=== PATIENT | male | born 1990 | race Caucasian/White ===

== ENCOUNTER 2023-12-06 15:06 | Emergency (ER) | payer OTHER, SELFPAY ==
[2023-12-06 15:11] VITALS: BP 155/102
[2023-12-06 15:43] LABS: % Basophils 0.3 % (0-2); % Eosinophils 1.4 % (0-6); % Immature Granulocytes 0.2 % (0-0.5); % Lymphocytes 40.8 % (20.5-51.1); % Monocytes 15.6 % (1.7-9.3); % Neutrophils 41.7 % (42.2-75.2); Absolute Eosinophils 0.1 10^3/uL (0-0.7); Absolute Lymphocytes 2.4 10^3/uL (1.2-3.4); Absolute Monocytes 0.9 10^3/uL (0.1-0.6); Absolute Neutrophils 2.4 10^3/uL (1.4-6.5); Hematocrit 45.2 % (39.0-52.0); Hemoglobin 16.4 g/dL (13.0-18.0); Mean Corp Hgb Conc. 36.3 g/dL (33.0-37.0); Mean Corpuscular Hgb 32.2 pg (27.0-31.0); Mean Corpuscular Volume 88.8 fL (80.0-94.0); Mean Platelet Volume 9.3 fL (7.4-10.4); Nucleated Red Blood Cells % 0 % (-); Platelet Count 204 10^3/uL (130-400); Red Blood Cell Count 5.09 10^6/uL (4.70-6.10); Red Cell Dist. Width 11.7 % (11.5-14.5); White Blood Cell Count 5.8 10^3/uL (4.8-10.8)
[2023-12-06 15:53] LABS: ALT (SGPT) 107 U/L (0-50); AST (SGOT) 76 U/L (17-59); Albumin 4.8 g/dl (3.5-5.0); Alkaline Phosphatase 87 U/L (38-126); Blood Urea Nitrogen 13 mg/dl (9-20); Carbon Dioxide 26 mmol/L (22-30); Chloride 101 mmol/L (98-107); Glucose 110 mg/dl (70-99); Lipase 71 U/L (23-300); Sodium 134 mmol/L (135-145); Total Bilirubin 0.9 mg/dl (0.2-1.3); Total Protein 7.9 g/dl (6.3-8.2); eGFR > 60.00
--- NOTE | 2023-12-06 18:15 | ED.GENMED ---
History of Present Illness
General
Chief Complaint: Abdominal Symptoms
Source: patient
Exam Limitations: none
Time Seen by Provider: 12/06/23 18:03
Travel History
Have you had any contact with someone who has COVID-19?: No
Do you have any symptoms of coronavirus? Fever > 100 degrees, chills, cough, shortness of breath, sore throat, loss of taste or smell, muscle aches, or headache?: No
History of Present Illness
History of Present Illness:
33-year-old male presents with 36 hours worth of diarrhea. Initially he was going every 20 minutes now with decreasing every hour however today return to black-colored stool. This was preceded by diffuse abdominal discomfort with chills. The
chills and abdominal discomfort have resolved. He has not been able to keep anything in. No chest pain or shortness of breath. No recent hospitalization or antibiotic. No known attacks. No other complaints at this time
Phy Exam
Physical Exam
Physical Exam:
General: Well-appearing male no acute respiratory distress
HEENT: Normocephalic atraumatic neck is supple mucosa dry
Heart: Regular rate and rhythm no murmurs
Lungs: Clear to auscultation bilaterally no wheezing
Abdomen soft normal bowel sounds nondistended nontender no guarding or rebound
Extremities: No cyanosis or edema
skin: Warm, no rashes
Course
Orders/Labs/Results
Orders:
Orders
12/06/23 15:26
Complete Blood Count/With Diff Urgent
Comprehensive Metabolic Panel Urgent
Lipase Urgent
12/06/23 18:14
Norovirus by PCR Urgent
[place] Source: Feces/Stool
Specimen Description:
Date Specimen was Collected: 12/06/23
Time Specimen was Collected: 18:32
STOOL [C difficile Antigen & Toxins] Urgent
[place] Source: Feces/Stool
Specimen Description:
Date Specimen was Collected: 12/06/23
Time Specimen was Collected: 18:32
0.9% Sodium Chloride 1000 ml [Nss] 1,000 ml IV BOLUS
12/06/23 18:18
Stool for Occult Blood Routine
12/06/23 18:37
Stool Culture Urgent
[place] Source: Feces/Stool
Specimen Description:
Date Specimen was Collected: 12/06/23
Time Specimen was Collected: 18:32
Abnormal Lab Results
12/06/23
15:26
MCH 32.2 H pg
(27.0-31.0)
Absolute Monos (auto) 0.9 H 10^3/uL
(0.1-0.6)
Neutrophils % 41.7 L %
(42.2-75.2)
Monocytes % 15.6 H %
(1.7-9.3)
Sodium 134 L mmol/L
(135-145)
Glucose 110 H mg/dl
(70-99)
AST 76 H U/L
(17-59)
ALT 107 H U/L
(0-50)
12/06/23 15:26
12/06/23 15:26
Vital Signs
Initial and Last Documented VS:
Initial Vital Signs
Temp Pulse Resp BP Pulse Ox
98.2 F 98 18 155/102 95
12/06/23 15:11 12/06/23 15:11 12/06/23 15:11 12/06/23 15:11 12/06/23 15:11
Last Documented Vital Signs
Temp Pulse Resp BP Pulse Ox
98.2 F 92 18 132/95 94
12/06/23 15:11 12/06/23 18:25 12/06/23 18:25 12/06/23 18:25 12/06/23 18:25
MDM/Problems Addressed
Differential Diagnosis Includes:
Diarrhea preceded by chills and abdominal pain. Currently abdominal exam is benign without any specific tenderness. Will check cultures of stool including C. difficile studies norovirus testing and heme test as well. No indication for imaging at
this point given benign exam. Possible underlying viral illness versus foodborne illness. Check for electrolyte abnormality or anemia
*Critical Care Note
Total Time (30-74mins, 75-104mins- exclusive of procedures): Not Applicable
Update Note
Update Note:
Patient reexamined still nontoxic in appearance. He finished liter of fluid. He provided a stool sample which results are pending. This point patient expresses his desire to go home. Advise clear liquids at home and brat diet.
ED Attending Note
-
Portions of this chart may have been created with voice recognition software.� Occasional wrong word or��sound alike� substitutions may have occurred due to the inherent limitations of voice recognition software.
Discharge Plan
Departure
Patient Disposition: Home (Routine Discharge)
Date of Disposition: 12/06/23
Time of Disposition: 20:58
Patient with high blood pressure during this ER visit?: No
Discharge Problem:
Diarrhea
Instructions: Diarrhea in adolescents and adults
Prescriptions:
No Action
psyllium Packet
1 packet PO DAILY
docusate sodium [Stool Softener] 100 mg Capsule
100 mg PO PRN PRN (Reason: consti)
oxycodone 5 mg tablet
5 - 10 mg PO Q4HPRN PRN (Reason: moderate to severe pain) Qty: 12 0RF
Referrals:
UNKNOWN - PT DOES,NOT KNOW [Family Provider] -
Activity Restrictions/Additional Instructions:
Drink plenty clear liquids. Advance to brat diet as tolerated. Return for worsening symptoms. You should receive a call if any of your stool studies are positive
Interventions
Interventions:
*Neglect/Abuse Screening Last Done: 12/06/23 17:31
*ED COVID-19 Vaccine History Last Done: 12/06/23 15:11
UL-Wnxunu-Xqshrfcdys Assessment Last Done: 12/06/23 17:31
[2023-12-06] MEDS: NSS 1000 IV (18:24)
[2023-12-06 18:25] VITALS: BP 132/95
== END 2023-12-06 21:17 | disposition home or self-care (01) ==
LOC: EMR 15:06
PROVIDERS: Emergency Medicine; EMERGENCY PHYSICIAN Emergency Medicine
DX: R19.7 Diarrhea, unspecified (principal); R68.83 Chills (without fever); R10.9 Unspecified abdominal pain
CPT/HCPCS: 99284; 96360; 80053; 83690; 85025; 87045; 87046; 87324; 87427; 87449; 87798

== ENCOUNTER 2023-12-07 20:32 | Emergency (ER) | payer OTHER, SELFPAY ==
[2023-12-07 20:44] VITALS: BP 154/100
[2023-12-07 20:55] LABS: Hematocrit 41.7 % (39.0-52.0); Hemoglobin 14.6 g/dL (13.0-18.0); Mean Corpuscular Hgb 31.8 pg (27.0-31.0); Mean Corpuscular Volume 90.8 fL (80.0-94.0); Mean Platelet Volume 9.4 fL (7.4-10.4); Platelet Count 212 10^3/uL (130-400); Red Blood Cell Count 4.59 10^6/uL (4.70-6.10); Red Cell Dist. Width 11.8 % (11.5-14.5)
[2023-12-07 21:10] LABS: Blood Urea Nitrogen 11 mg/dl (9-20); Calcium 8.6 mg/dl (8.4-10.2); Carbon Dioxide 25 mmol/L (22-30); Chloride 105 mmol/L (98-107); Glucose 95 mg/dl (70-99); Potassium 3.6 mmol/L (3.5-5.1); Sodium 137 mmol/L (135-145); eGFR > 60.00
--- NOTE | 2023-12-08 00:32 | ED.GENMED ---
History of Present Illness
<MINGO Ojeda - Last Filed: 12/08/23 00:42>
General
Chief Complaint: Abdominal Symptoms
Source: patient
Exam Limitations: none
Time Seen by Provider: 12/08/23 00:04
Nursing documentation reviewed up to this point in time: agreed with
Travel History
Have you had any contact with someone who has COVID-19?: No
Do you have any symptoms of coronavirus? Fever > 100 degrees, chills, cough, shortness of breath, sore throat, loss of taste or smell, muscle aches, or headache?: No
History of Present Illness
History of Present Illness:
patient is a 33 y/o male with PMH of ventral hernia repair september 2023 presenting for continued diarrhea and fever x 5 days. Patient presented to the ED last night for the same symptoms with no relief. Patient was given fluids last night. Patient
labs showed negative C. diff and norovirus. Patient results for salmonella. Campylobacter and shiga are all pending. Patient admits that he continues to have persistent watery diarrhea with abdominal discomfort. Patient admits the abdominal
discomfort is crampy and diffuse throughout his stomach. Patient admits to two episodes of black stool which brought him in last night but denies any new episodes of black stool since going home. Patient admits to janel of Pepto Bismol. Patient admits
to dehydration. Patient states he has drank to Pedialyte today but continues to feel mouth dryness. Patient admits to fever and chills. Patient states that when temperature was taken at home it was 100.4 and his temperature was 99.5 on admission.
Patient denies N/V since last presentation. blood in stool, changes with food, dizziness, SOB, CP. Patient denies alcohol or smoking in the last 48 hrs. Patient denies changes in diet or recent travel. Patient admits that since last night his
has started to prevent with similar symptoms of fever and diarrhea.
Review of Systems
<MINGO Ojeda - Last Filed: 12/08/23 00:42>
Review of Systems
All Other Systems: Not applicable
Constitutional: Reports fever and chills
EENT: Reports no symptoms
Respiratory: Reports no symptoms
Cardiac: Reports no symptoms
ABD/GI: Reports abdominal pain, diarrhea and black stools
: Reports no symptoms
Musculoskeletal: Reports no symptoms
Skin: Reports no symptoms
Neurological: Reports no symptoms
Endocrine: Reports no symptoms
Hematologic/Lymphatic: Reports no symptoms
Psychiatric: Reports no symptoms
Phy Exam
<MINGO Ojeda - Last Filed: 12/08/23 00:42>
General Physical Exam
General Presentation: well appearing and no apparent distress
General Skin: warm and dry
General Habitus: normal
General Mental: alert
General Hydration: appears well hydrated
ENT Exam
ENT Exam: EOMI, pharynx normal, neck supple and normocephalic
Eye Exam
Eye Exam: PERRL, cornea clear and conjunctiva normal
Cardiovascular Exam
Cardiovascular Exam: regular rate/rhythm, no edema, no murmur and normal peripheral pulses
Pulmonary Exam
Pulmonary Exam: lungs clear, no respiratory distress, no rales, no crackles, no rhonchi, no stridor, no wheezing and no cough
Gastrointestinal Exam
Gastrointestinal Exam: normal bowel sounds, soft, no organomegaly, non distended and tender
Palpation: generalized: Mild tenderness
Neurological Exam
Neurological Exam: alert, oriented x3, no motor deficits and speech normal
Musculoskeletal Exam
Musculoskeletal Exam: full ROM and no edema
Skin Exam
Skin Exam: normal color, warm/dry, no rash and no petechia
Psychiatric Exam
Psychiatric Exam: normal mood/affect
Course
<MINGO Ojeda - Last Filed: 12/08/23 00:42>
Orders/Labs/Results
Orders:
Orders
12/07/23 20:51
BMP [Basic Metabolic Panel] Urgent
Complete Blood Count/No Diff Urgent
12/08/23 02:00
Lactated Ringers [Lr] 1,000 ml IV 999 mls/hr
Abnormal Lab Results
12/07/23
20:51
RBC 4.59 L 10^6/uL
(4.70-6.10)
MCH 31.8 H pg
(27.0-31.0)
12/07/23 20:51
12/07/23 20:51
Vital Signs
Initial and Last Documented VS:
Initial Vital Signs
Temp Pulse Resp BP Pulse Ox
99.5 F 92 18 154/100 95
12/07/23 20:44 12/07/23 20:44 12/07/23 20:44 12/07/23 20:44 12/07/23 20:44
Last Documented Vital Signs
Temp Pulse Resp BP Pulse Ox
99.5 F 92 18 154/100 95
12/07/23 20:44 12/07/23 20:44 12/07/23 20:44 12/07/23 20:44 12/07/23 20:44
Claudinelt;Mac Cheng, DO - Last Filed: 12/08/23 02:37>
Orders/Labs/Results
Orders:
Orders
12/07/23 20:51
BMP [Basic Metabolic Panel] Urgent
Complete Blood Count/No Diff Urgent
12/08/23 02:00
Lactated Ringers [Lr] 1,000 ml IV 999 mls/hr
Abnormal Lab Results
12/07/23
20:51
RBC 4.59 L 10^6/uL
(4.70-6.10)
MCH 31.8 H pg
(27.0-31.0)
12/07/23 20:51
12/07/23 20:51
Vital Signs
Initial and Last Documented VS:
Initial Vital Signs
Temp Pulse Resp BP Pulse Ox
99.5 F 92 18 154/100 95
12/07/23 20:44 12/07/23 20:44 12/07/23 20:44 12/07/23 20:44 12/07/23 20:44
Last Documented Vital Signs
Temp Pulse Resp BP Pulse Ox
99.5 F 92 18 154/100 95
12/07/23 20:44 12/07/23 20:44 12/07/23 20:44 12/07/23 20:44 12/07/23 20:44
<MINGO Ojeda - Last Filed: 12/08/23 00:42>
MDM/Problems Addressed
Differential Diagnosis Includes:
viral GE
bacterial infection
MDM/Problems Addressed:
diarrhea and fever
<MINGO Ojeda - Last Filed: 12/08/23 00:42>
*Critical Care Note
Total Time (30-74mins, 75-104mins- exclusive of procedures): Not Applicable
ED Attending Note
<MINOG Ojeda - Last Filed: 12/08/23 00:42>
-
Portions of this chart may have been created with voice recognition software.� Occasional wrong word or��sound alike� substitutions may have occurred due to the inherent limitations of voice recognition software.
<Mac Cheng DO - Last Filed: 12/08/23 02:37>
ED Attending Note
Patient seen and examined by attending physician: Yes
I performed the substantive portion of visit, reviewed & personally made and approve the management plan that is documented in note by myself or IZA.: Yes
ED Attending Note:
Pleasant 33-year-old male who presents with continued diarrhea. He states that for the last 5 days he has had nonbloody diarrhea. He was seen in the emergency department last night for similar symptoms and treated with IV fluids. He was released.
Today he awakened and stated that his symptoms persisted. Patient did have stool cultures yesterday which are still pending. He returns tonight because he feels that he is 'dehydrated '. He is able to tolerate liquids. He also reports that he
had 100.4 degree temperature at home. He did not take any antipyretics. He states that upon arrival here in the emergency department, his temperature was 99.5 �F. He denies nausea or vomiting. Denies chest pain or shortness of breath. Patient
works at a [employer]. He denies any sick contacts. He lives at home with his and child. His initially had chills the first day that patient got sick but she is has not had any symptoms since. Patient was seen in
conjunction with the PA student. I have reviewed and agree with the history and treatment plan presented. On my independent physical exam, patient is awake, alert, and oriented x3, minimal acute distress. Heart is regular rate and rhythm. Lungs
are clear to auscultation bilaterally without wheezes rales or rhonchi. Abdomen is soft with no tenderness to palpation. Good bowel sounds x 4 quadrants. Negative Cochran sign. Negative McBurney's point tenderness. Patient is moving all 4
extremities.
Discharge Plan
Departure
Patient Disposition: Home (Routine Discharge)
Date of Disposition: 12/08/23
Time of Disposition: 02:13
Patient with high blood pressure during this ER visit?: Yes
Condition: Good
Discharge Problem:
Diarrhea
Instructions: Diarrhea and Travelers' Diarrhea, Adult (DC), Dewar Diet, BLOOD PRESSURE
Prescriptions:
No Action
psyllium Packet
1 packet PO DAILY
docusate sodium [Stool Softener] 100 mg Capsule
100 mg PO PRN PRN (Reason: consti)
oxycodone 5 mg tablet
5 - 10 mg PO Q4HPRN PRN (Reason: moderate to severe pain) Qty: 12 0RF
Referrals:
[facility] [Outside]
[facility] [Outside]
NONE,* [Family Provider] -
Activity Restrictions/Additional Instructions:
It was a pleasure meeting you and taking part in your care. We hope for your continued healing and wellness.
Please read discharge instructions in their entirety. However, they are for general education and may not describe your exact diagnosis at discharge. Information on your ER visit and medical conditions were discussed with you along with appropriate
follow up information...
If indicated, please take your medications as instructed and indicated on discharge paperwork.
Please schedule a follow up appointment as directed. Call to schedule an appointment
Please return to the emergency department with ANY change in, persisting, or worsening of symptoms. If any of your symptoms do not improve, or persist, or become more severe within 6-12 hours, please return to the emergency department for further
care.
Please return to the emergency department if you develop a headache, neck pain/stiffness, fever greater than 100.4F, chest pain, shortness of breath, persistent nausea, vomiting, slurred speech, difficulty walking, numbness/tingling, weakness, signs
of infection or any other symptoms that are worrisome to you.
If you have any questions or concerns please do not hesitate to call the Hospital at or E-mail me directly at [email or web address]
Interventions
Interventions:
*Risk Screen - Suicide Last Done: 12/07/23 20:44
*Neglect/Abuse Screening Last Done: 12/07/23 20:44
[2023-12-08 01:00] VITALS: BP 136/87
[2023-12-08] MEDS: LR 1000 IV (01:37)
== END 2023-12-08 03:03 | disposition home or self-care (01) ==
LOC: EMR 20:32
PROVIDERS: Emergency Medicine; EMERGENCY PHYSICIAN Student in an Organized Health Care Education/Training Program
DX: R19.7 Diarrhea, unspecified (principal); R50.9 Fever, unspecified; R10.9 Unspecified abdominal pain; K92.1 Melena; R03.0 Elevated blood-pressure reading, without diagnosis of hypertension; F41.9 Anxiety disorder, unspecified; F32.A Depression, unspecified; F43.10 Post-traumatic stress disorder, unspecified; E78.5 Hyperlipidemia, unspecified; R56.9 Unspecified convulsions; Z88.2 Allergy status to sulfonamides
CPT/HCPCS: 99284; 96360; 80048; 85027

== ENCOUNTER 2024-09-02 05:52 | Emergency (ER) | payer OTHER, SELFPAY ==
[2024-09-02 06:04] VITALS: BP 139/96
[2024-09-02 06:17] VITALS: BP 130/91
[2024-09-02 06:23] LABS: % Basophils 0.4 % (0-2); % Immature Granulocytes 0.1 % (0-0.5); % Monocytes 7.1 % (1.7-9.3); % Neutrophils 80.4 % (42.2-75.2); Absolute Eosinophils 0.1 10^3/uL (0-0.7); Absolute Lymphocytes 0.8 10^3/uL (1.2-3.4); Absolute Monocytes 0.5 10^3/uL (0.1-0.6); Absolute Neutrophils 5.5 10^3/uL (1.4-6.5); Hematocrit 51.4 % (39.0-52.0); Hemoglobin 17.5 g/dL (13.0-18.0); Mean Corpuscular Hgb 31.9 pg (27.0-31.0); Mean Corpuscular Volume 93.8 fL (80.0-94.0); Mean Platelet Volume 9.4 fL (7.4-10.4); Nucleated Red Blood Cells % 0 % (-); Platelet Count 201 10^3/uL (130-400); Red Blood Cell Count 5.48 10^6/uL (4.70-6.10); Red Cell Dist. Width 11.7 % (11.5-14.5); White Blood Cell Count 6.9 10^3/uL (4.8-10.8)
[2024-09-02 06:42] LABS: ALT (SGPT) 83 U/L (0-50); AST (SGOT) 53 U/L (17-59); Albumin 4.9 g/dl (3.5-5.0); Alkaline Phosphatase 72 U/L (38-126); Blood Urea Nitrogen 17 mg/dl (9-20); Calcium 9.1 mg/dl (8.4-10.2); Carbon Dioxide 26 mmol/L (22-30); Chloride 103 mmol/L (98-107); Glucose 150 mg/dl (70-99); Lipase 93 U/L (23-300); Potassium 4.7 mmol/L (3.5-5.1); Sodium 140 mmol/L (135-145); Total Bilirubin 0.9 mg/dl (0.2-1.3); Total Protein 7.8 g/dl (6.3-8.2); eGFR > 60.00
[2024-09-02 06:51] LABS: Troponin I < 0.012 ng/ml
[2024-09-02 07:00] VITALS: BP 141/84
--- NOTE | 2024-09-02 07:17 | ED.GENMED ---
History of Present Illness
General
Chief Complaint: Abdominal Symptoms
Source: patient
Exam Limitations: none
Time Seen by Provider: 09/02/24 07:10
History of Present Illness
History of Present Illness:
See MDM
Past History
Past History
ED Past Medical History: None
ED Past Surgical History: None
Social History
Tobacco: Non-smoker
Alcohol: None
Phy Exam
Physical Exam
Physical Exam:
See MDM
Course
Orders/Labs/Results
Orders:
Orders
09/02/24 05:54
EKG [Electrocardiogram (*1)] Urgent
Reason for Study: Chest Pain
09/02/24 05:55
EKG- Treatment ONCE
09/02/24 06:08
IV Insert/Care/Rem.- Treatment PRN
09/02/24 06:14
Complete Blood Count/With Diff Urgent
Comprehensive Metabolic Panel Urgent
Lipase Urgent
Troponin I Urgent
09/02/24 07:15
0.9% Sodium Chloride 1000 ml [Nss] 1,000 ml IV BOLUS
Ketorolac [Toradol] 30 mg IV NOW STA
Ondansetron Injectable [Zofran] 4 mg IV NOW STA
09/02/24 07:16
CT Abd/pelvis W Iv Cont Urgent
Comment:
Reason For Exam: Generalized abd pain, bloating, vomiting
Abnormal Lab Results
09/02/24
06:14
MCH 31.9 H pg
(27.0-31.0)
Absolute Lymphs (auto) 0.8 L 10^3/uL
(1.2-3.4)
Neutrophils % 80.4 H %
(42.2-75.2)
Lymphocytes % 11.0 L %
(20.5-51.1)
Glucose 150 H mg/dl
(70-99)
ALT 83 H U/L
(0-50)
09/02/24 06:14
09/02/24 06:14
Vital Signs
Initial and Last Documented VS:
Initial Vital Signs
Temp Pulse Resp BP Pulse Ox
99.9 F 122 20 139/96 96
09/02/24 06:04 09/02/24 06:04 09/02/24 06:04 09/02/24 06:04 09/02/24 06:04
Last Documented Vital Signs
Temp Pulse Resp BP Pulse Ox
99.9 F 124 22 130/91 94
09/02/24 06:04 09/02/24 06:18 09/02/24 06:18 09/02/24 06:17 09/02/24 06:18
MDM/Problems Addressed
Differential Diagnosis Includes:
HPI and MDM Narrative:
34-year-old male presenting for evaluation of generalized abdominal pain, bloating, vomiting and loose stools. This is now associated with chest discomfort. On exam, he is tachycardic, dehydrated and uncomfortable. He has generalized abdominal
tenderness without significant rebound. We discussed likely viral gastroenteritis. He confirms that his son had similar symptoms. We discussed the EKG showing flattened T waves in inferior leads but troponin is negative. He states he has seen a
balance wheel motion inspector in the past and had a recent negative stress test.
Given his ongoing symptoms, will obtain CT abdomen/pelvis but will treat as likely viral gastroenteritis with fluids, Zofran and Toradol
Physical exam
General: Mildly uncomfortable
HEENT: protecting airway. Dry mucous membranes
Neck: appears supple
CV: No evidence of cyanosis. Tachycardic
Resp: No accessory muscle use. Lungs clear
Abd: Mildly distended and generalized tenderness. No rebound
Extremities: No deformities
Neuro: alert
Psych: Normal affect
Skin: Intact
Problems Addressed including Acute and Chronic Conditions affecting care:
1. Abdominal pain, nausea, vomiting
Acuity: acute
Prognosis: stable
Details: Likely viral gastroenteritis. Will obtain CT. Patient given Toradol, Zofran and fluid
Updates
On reassessment, patient feeling better. Tachycardia improving. CT negative for acute pathology. We referenced his hepatomegaly which she was already aware of. Discussed return precautions
Prior to discharge, patient asking me to look at his ear. His right ear canal looks erythematous. Will write for Cortisporin drops
Differential Diagnosis (but not limited to): Viral gastroenteritis, colitis, acute appendicitis
Testing considered: Chest x-ray but lungs clear
Drug therapy (if applicable): OTC meds, please see d/c instruction regarding Rx drugs
Amount and/or Complexity of Data Reviewed
Clinical info obtained from: Patient
External data reviewed: N/A
Labs I independently reviewed (but not limited to): Mild hyperglycemia, mild LFT elevation. ALT mildly elevated
Radiology: The CT scan was personally and independently reviewed. In addition, official CT report reviewed.
Pulse Ox: not hypoxic
EKG independently reviewed: Sinus tachycardia, normal axis, no STEMI
Data Operations Manager: Sinus tach
Critical Care: N/A
Risk of Complication:
Social Determinants of health: Good social support
Discussed with other providers: N/A
Escalation of Care includes Admit/Obs: After being observed in the Emergency Department, pt stable for discharge.
Occasional wrong word or 'sound a like' substitutions may have occurred due to the inherent limitations of voice recognition software. Read the chart carefully and recognize, using context, where substitutions have occurred.
*Critical Care Note
Total Time (30-74mins, 75-104mins- exclusive of procedures): Not Applicable
ED Attending Note
-
Portions of this chart may have been created with voice recognition software.� Occasional wrong word or��sound alike� substitutions may have occurred due to the inherent limitations of voice recognition software.
Discharge Plan
Departure
Patient Disposition: Home (Routine Discharge)
Date of Disposition: 09/02/24
Time of Disposition: 08:46
Patient with high blood pressure during this ER visit?: No
Discharge Problem:
Viral gastroenteritis
Instructions: Viral gastroenteritis in adults
Prescriptions:
New
ondansetron 4 mg Tablet,Disintegrating
4 mg PO BIDPRN PRN (Reason: nausea/vomiting) Qty: 10 0RF
Cortisporin-TC 3.3-3-10-0.5 mg/mL drops,suspension
1 applic otic (ear) Q4H Qty: 10 0RF
No Action
psyllium Packet
1 packet PO DAILY
docusate sodium [Stool Softener] 100 mg Capsule
100 mg PO PRN PRN (Reason: consti)
oxycodone 5 mg tablet
5 - 10 mg PO Q4HPRN PRN (Reason: moderate to severe pain) Qty: 12 0RF
Referrals:
NONE,* [Family Provider] -
Activity Restrictions/Additional Instructions:
Please return for any worsening symptoms.
You may return at any time if you have further concerns.
Please follow up with your doctor at the first available appointment, preferably this week.
Thank you for choosing [facility].
Interventions
Interventions:
*Risk Screen - Suicide Last Done: 09/02/24 06:01
*General Assessment Last Done: 09/02/24 06:07
*Neglect/Abuse Screening Last Done: 09/02/24 06:01
ED- Fall Risk Assessment Last Done: 09/02/24 06:17
*ED COVID-19 Vaccine History Last Done: 09/02/24 06:07
NF-Lcokko-Kftqqldfdp Assessment Last Done: 09/02/24 06:17
Discharge Date and Time
Print Language: KINYARWANDA
[2024-09-02] MEDS: NSS 1000 IV (07:24)
[2024-09-02] MEDS: ZOFRAN 4 MG IV (07:25)
[2024-09-02] MEDS: TORADOL 30 MG IV (07:29)
[2024-09-02 07:32] VITALS: BMI 40.1
== END 2024-09-02 10:15 | disposition home or self-care (01) ==
LOC: EMR 05:52
PROVIDERS: EMERGENCY PHYSICIAN Student in an Organized Health Care Education/Training Program
DX: A08.4 Viral intestinal infection, unspecified (principal)
CPT/HCPCS: 99284; 96374; 96375; 96361; 74177; 80053; 83690; 84484; 85025; 93005; Q9967